=== PATIENT | female | born 1950 | race African-American/Black ===

== ENCOUNTER 2016-11-22 11:00 | Emergency (ER) | payer MEDICARE, OTHER ==
[~2016-11-22] VITALS: Ht 167.6 cm; Wt 83.9 kg
--- NOTE | 2016-11-22 11:10 | NUR ---
PT TO ED ROOM 03. BIB RA C/O PT FELL OVER IN WHEELCHAIR VAN. A/A/O. SIDE RAILS UP. HOB ELEVTAED. CONNECTED TO MONITOR. SEEN AND EVALAUTED BY DR SERRATO
[2016-11-22] MEDS ORDERED: ACETAMINOPHEN ES 500 MG TABLET ONE (11:13)
[2016-11-22] MEDS ORDERED: ACETAMINOPHEN ES 500 MG TABLET PO ONE (11:30)
--- NOTE | 2016-11-22 12:15 | NUR ---
[facility] CALLED AND ARE WILLING TO SCHEDULE HER FOR 1 PM FOR DIALYSIS BUT PATIENT DECIDED TO GO HOME INSTEAD, DR SERRATO AWARE.
--- NOTE | 2016-11-22 12:20 | NUR ---
Patient discharged to home in stable condition. Written and verbal after care instructions given. Patient verbalizes understanding of instruction.
[2016-11-22 12:21] VITALS: BP 125/65
--- NOTE | 2016-11-22 12:22 | NUR ---
CALLED [facility], ETA OF 20 MINS WAS GIVEN.
== END 2016-11-22 12:21 | disposition home or self-care (01) ==
LOC: ER 11:02
DX: S09.90XA Unspecified injury of head, initial encounter (principal); N18.6 End stage renal disease; R51 Headache; Z99.2 Dependence on renal dialysis; W05.0XXA Fall from non-moving wheelchair, initial encounter; Y93.89 Activity, other specified; Y92.89 Other specified places as the place of occurrence of the external cause; Y99.8 Other external cause status
CPT/HCPCS: 70450; 93005; 99284; A4606; Z7610

== ENCOUNTER 2017-03-31 10:12 | Inpatient (IN) | payer MEDICARE, OTHER ==
[~2017-03-31] VITALS: Ht 172.7 cm; Wt 77.1 kg
[2017-03-31 11:05] LABS: BASOPHILS # (AUTO) 0.1 /CMM (0.0-0.2); BASOPHILS % (AUTO) 0.7 % (0.0-2.0); EOSINOPHILS # (AUTO) 0.2 /CMM (0.0-0.7); HEMATOCRIT 31 % (33-45); LYMPHOCYTES # (AUTO) 1.2 /CMM (0.8-4.8); MEAN CORPUSCULAR HEMOGLOBIN 28 PG (26.0-33.0); MEAN CORPUSCULAR HGB CONC 32 g/dl (31.0-36.0); MEAN CORPUSCULAR VOLUME 87 fL (82-100); MONOCYTES # (AUTO) 0.5 /CMM (0.1-1.30); MONOCYTES % (AUTO) 5.4 % (2.0-12.0); NEUTROPHILS # (AUTO) 7.5 /CMM (1.8-8.9); NEUTROPHILS % (AUTO) 78.9 % (43.0-81.0); PLATELET COUNT (AUTO) 299 /CMM (150-450); RED BLOOD CELL COUNT(AUTO) 3.62 MIL/uL (4.0-5.2); WHITE BLOOD COUNT (AUTO) 9.5 K/uL (4.3-11.0)
[2017-03-31 11:19] LABS: CALCIUM, SERUM 6.8 mg/dL (8.5-10.1); CREATININE 14.3 mg/dL (0.6-1.3); POTASSIUM 5.4 mmol/L (3.5-5.1)
[2017-03-31 11:20] LABS: INR 0.95 (0.87-1.13); PROTHROMBIN TIME 9.9 SECS (9.5-12.7)
[2017-03-31] MEDS ORDERED: SODIUM POLYSTYRENE SULFONATE 15 G/60 ML BOTTLE ONE (11:59)
[2017-03-31] MEDS ORDERED: SODIUM POLYSTYRENE SULFONATE 15 G/60 ML BOTTLE PO ONE (12:00)
[2017-03-31 12:39] VITALS: BP 96/45
[2017-03-31] MEDS ORDERED: ASPI-991 PO (12:57)
[2017-03-31] MEDS ORDERED: CLOP75TA2 PO (12:57)
[2017-03-31] MEDS ORDERED: LEVO100T9 PO (12:57)
[2017-03-31] MEDS ORDERED: CALC667C6 PO (12:57)
[2017-03-31] MEDS ORDERED: SEVE800T8 PO (12:57)
[2017-03-31] MEDS ORDERED: LEVE250T2 PO (12:57)
[2017-03-31] MEDS ORDERED: MIDO10TA PO (12:57)
[2017-03-31] MEDS ORDERED: ATOR20TA PO (12:57)
[2017-03-31 14:00] VITALS: BP 96/45
[2017-03-31] MEDS ORDERED: ONDANSETRON HCL/PF 4 MG/2 ML VIAL IV PRN (14:30)
[2017-03-31 16:00] VITALS: BP 106/66
[2017-03-31] MEDS: SEVELAMER CARBONATE 800 MG TABLET PO SCH (17:32)
[2017-03-31] MEDS: CALCIUM ACETATE 667 MG TABLET PO SCH (17:32)
[2017-03-31] MEDS: MIDODRINE HCL (5MG) 5 MG TABLET PO SCH (17:33)
[2017-03-31] MEDS: LEVETIRACETAM (250 MG) 250 MG TABLET PO SCH (17:33)
[2017-03-31 20:00] VITALS: BP 111/63
[2017-03-31] MEDS: ACETAMINOPHEN 650 MG/20.3 ML UDC NG PRN (21:23)
[2017-03-31] MEDS: ATORVASTATIN 10 MG TABLET PO SCH (21:23)
[2017-04-01 04:37] VITALS: BP 122/64
[2017-04-01 07:10] LABS: BASOPHILS # (AUTO) 0.1 /CMM (0.0-0.2); BASOPHILS % (AUTO) 0.9 % (0.0-2.0); EOSINOPHILS # (AUTO) 0.3 /CMM (0.0-0.7); EOSINOPHILS % (AUTO) 4.6 % (0.0-6.0); HEMATOCRIT 30 % (33-45); HEMOGLOBIN 9.3 g/dL (11.5-14.8); LYMPHOCYTES # (AUTO) 1.4 /CMM (0.8-4.8); LYMPHOCYTES % (AUTO) 19.9 % (20.0-44.0); MEAN CORPUSCULAR HEMOGLOBIN 28 PG (26.0-33.0); MEAN CORPUSCULAR HGB CONC 31 g/dl (31.0-36.0); MEAN CORPUSCULAR VOLUME 88 fL (82-100); MONOCYTES # (AUTO) 0.6 /CMM (0.1-1.30); MONOCYTES % (AUTO) 8.8 % (2.0-12.0); NEUTROPHILS # (AUTO) 4.5 /CMM (1.8-8.9); NEUTROPHILS % (AUTO) 65.8 % (43.0-81.0); PLATELET COUNT (AUTO) 258 /CMM (150-450); RDW COEFFICIENT OF VARIATION 18.4 (11.5-15.0); RED BLOOD CELL COUNT(AUTO) 3.37 MIL/uL (4.0-5.2); WHITE BLOOD COUNT (AUTO) 6.9 K/uL (4.3-11.0)
[2017-04-01 08:00] VITALS: BP 112/58
[2017-04-01] MEDS: LEVOTHYROXINE SODIUM 100 MCG TABLET PO SCH (08:35)
[2017-04-01] MEDS: PANTOPRAZOLE 40 MG TABLET.DR PO SCH (08:35)
[2017-04-01] MEDS: CALCIUM ACETATE 667 MG TABLET PO SCH ×3 (08:35→17:17)
[2017-04-01] MEDS: ASPIRIN EC 81 MG TABLET.DR PO SCH (08:39)
[2017-04-01] MEDS: SEVELAMER CARBONATE 800 MG TABLET PO SCH ×3 (08:40→17:17)
[2017-04-01] MEDS: MIDODRINE HCL (5MG) 5 MG TABLET PO SCH ×3 (08:40→17:17)
[2017-04-01] MEDS: CLOPIDOGREL BISULFATE 75 MG TABLET PO SCH (08:41)
[2017-04-01] MEDS: LEVETIRACETAM (250 MG) 250 MG TABLET PO SCH ×3 (08:41→17:17)
[2017-04-01 11:06] LABS: CALCIUM, SERUM 6.9 mg/dL (8.5-10.1); MAGNESIUM 2.8 mg/dL (1.8-2.4); PHOSPHORUS 5.8 mg/dL (2.5-4.9); POTASSIUM 5.9 mmol/L (3.5-5.1)
[2017-04-01 11:15] LABS: CREATININE 15.9 mg/dL (0.6-1.3)
[2017-04-01] MEDS ORDERED: SODIUM POLYSTYRENE SULFONATE 15 G/60 ML BOTTLE PO ONE (12:45)
[2017-04-01] MEDS: ACETAMINOPHEN 650 MG/20.3 ML UDC NG PRN ×2 (14:19→20:41)
[2017-04-01 16:58] VITALS: BP 103/47
[2017-04-01 20:00] VITALS: BP 124/70
[2017-04-01] MEDS: ATORVASTATIN 10 MG TABLET PO SCH (22:25)
[2017-04-02] MEDS ORDERED: HYDROCODONE/APAP 5/325MG 1 EACH TABLET ONE (00:22)
[2017-04-02] MEDS ORDERED: HYDROCODONE/APAP 5/325MG 1 EACH TABLET PO PRN (00:30)
[2017-04-02] MEDS: LEVOTHYROXINE SODIUM 100 MCG TABLET PO SCH (07:30)
[2017-04-02] MEDS: PANTOPRAZOLE 40 MG TABLET.DR PO SCH (07:30)
[2017-04-02 08:00] VITALS: BP_SYST 111; BP_SYST 189; BP_DIAS 107; BP_DIAS 68
[2017-04-02] MEDS: CALCIUM ACETATE 667 MG TABLET PO SCH ×3 (08:00→17:49)
[2017-04-02] MEDS: SEVELAMER CARBONATE 800 MG TABLET PO SCH ×3 (08:00→17:49)
[2017-04-02] MEDS: LEVETIRACETAM (250 MG) 250 MG TABLET PO SCH ×3 (09:00→17:00)
[2017-04-02] MEDS: ASPIRIN EC 81 MG TABLET.DR PO SCH (09:00)
[2017-04-02] MEDS: CLOPIDOGREL BISULFATE 75 MG TABLET PO SCH (09:00)
[2017-04-02] MEDS: MIDODRINE HCL (5MG) 5 MG TABLET PO SCH ×3 (09:00→17:00)
[2017-04-02 11:57] LABS: CALCIUM, SERUM 6.8 mg/dL (8.5-10.1); MAGNESIUM 2.8 mg/dL (1.8-2.4); PHOSPHORUS 6.3 mg/dL (2.5-4.9); POTASSIUM 5.8 mmol/L (3.5-5.1)
[2017-04-02 12:05] LABS: CREATININE 17.1 mg/dL (0.6-1.3)
[2017-04-02 15:18] LABS: BASOPHILS # (AUTO) 0.2 /CMM (0.0-0.2); BASOPHILS % (AUTO) 3.3 % (0.0-2.0); EOSINOPHILS # (AUTO) 0.2 /CMM (0.0-0.7); EOSINOPHILS % (AUTO) 2.9 % (0.0-6.0); HEMATOCRIT 31 % (33-45); LYMPHOCYTES # (AUTO) 1.5 /CMM (0.8-4.8); LYMPHOCYTES % (AUTO) 27.1 % (20.0-44.0); MEAN CORPUSCULAR HEMOGLOBIN 27 PG (26.0-33.0); MEAN CORPUSCULAR HGB CONC 32 g/dl (31.0-36.0); MEAN CORPUSCULAR VOLUME 86 fL (82-100); MONOCYTES # (AUTO) 0.4 /CMM (0.1-1.30); MONOCYTES % (AUTO) 6.6 % (2.0-12.0); NEUTROPHILS # (AUTO) 3.2 /CMM (1.8-8.9); NEUTROPHILS % (AUTO) 60.1 % (43.0-81.0); PLATELET COUNT (AUTO) 329 /CMM (150-450); RDW COEFFICIENT OF VARIATION 17.9 (11.5-15.0); RED BLOOD CELL COUNT(AUTO) 3.65 MIL/uL (4.0-5.2); WHITE BLOOD COUNT (AUTO) 5.4 K/uL (4.3-11.0)
[2017-04-02 16:00] VITALS: BP 96/50
== END 2017-04-02 18:50 | disposition left against medical advice (07) | DRG 314 ==
LOC: ER 10:13 → TELE 12:09 → MED 04-01 09:20
PROVIDERS: ADMIT Internal Medicine; ATTEND Internal Medicine
PROC: 5A1D70Z Performance of Urinary Filtration, Intermittent, Less than 6 Hours Per Day (ICD-10-PCS; principal; 2017-04-02)
DX: T82.898A Other specified complication of vascular prosthetic devices, implants and grafts, initial encounter (principal); N18.6 End stage renal disease; I12.0 Hypertensive chronic kidney disease with stage 5 chronic kidney disease or end stage renal disease; I95.89 Other hypotension; E87.5 Hyperkalemia; Y92.009 Unspecified place in unspecified non-institutional (private) residence as the place of occurrence of the external cause; Y83.9 Surgical procedure, unspecified as the cause of abnormal reaction of the patient, or of later complication, without mention of misadventure at the time of the procedure; G40.909 Epilepsy, unspecified, not intractable, without status epilepticus; Z99.2 Dependence on renal dialysis; E78.00 Pure hypercholesterolemia, unspecified; D64.9 Anemia, unspecified
CPT/HCPCS: 36415; 71010-TC; 80048-TC; 82962-TC; 83735-TC; 84100-TC; 85025-TC; 85730-TC; 86850-TC; 87081-TC; 90935-TC; A4606; A6253; A6402; Z7610